=== PATIENT | male | born 1950 | race Caucasian/White ===

== ENCOUNTER 2023-11-05 08:18 | Day surgery (SDC) | payer OTHER ==
[~2023-11-05] VITALS: Ht 167.6 cm; Wt 81.6 kg
[2023-11-05] VITALS (10 sets, daily range): BP systolic 109–151; BP diastolic 55–77; PULSE 72–82; RESP 15–17
[~2023-11-05 08:18] MED LIST: ACET-66 PO; AEC81 PO; ROSU20TA73 PO
[2023-11-05] MEDS: 0.9%NACL 1000ML 1,000 ML IV ONE (09:27)
[2023-11-05] MEDS ORDERED: PROPOFOL 10 MG/ML 20ML VIAL IV ONE (11:16)
== END 2023-11-05 12:35 | disposition home or self-care (01) ==
LOC: DAH 08:18 → ENDO 08:18
PROVIDERS: ATTEND Internal Medicine Gastroenterology
DX: R13.10 Dysphagia, unspecified (principal); K22.2 Esophageal obstruction; K29.50 Unspecified chronic gastritis without bleeding; K31.A0 Gastric intestinal metaplasia, unspecified; K21.9 Gastro-esophageal reflux disease without esophagitis; K31.89 Other diseases of stomach and duodenum; J44.9 Chronic obstructive pulmonary disease, unspecified; I73.9 Peripheral vascular disease, unspecified; M19.90 Unspecified osteoarthritis, unspecified site; F17.210 Nicotine dependence, cigarettes, uncomplicated; Z79.899 Other long term (current) drug therapy; Z86.010 Personal history of colon polyps; Z80.0 Family history of malignant neoplasm of digestive organs; Z98.890 Other specified postprocedural states
CPT/HCPCS: 43239; 43248; J7030 ×2; J2704; A4620; A4215 ×2; A4223; A7002; A4222; A4221; A4663; A4606; J3490

== ENCOUNTER 2024-01-06 05:48 | Day surgery (SDC) | payer OTHER ==
[~2024-01-06] VITALS: Ht 167.6 cm; Wt 81.6 kg
[2024-01-06] VITALS (11 sets, daily range): BP systolic 109–137; BP diastolic 50–64; PULSE 62–72; RESP 14–18
[2024-01-06] MEDS ORDERED: PROPOFOL 10 MG/ML 20ML VIAL IV ONE (07:38)
[2024-01-06] MEDS: 0.9%NACL 1000ML 1,000 ML IV ONE (12:30)
== END 2024-01-06 09:00 | disposition home or self-care (01) ==
LOC: DAH 05:48 → ENDO 05:48
PROVIDERS: ATTEND Internal Medicine Gastroenterology
DX: R13.10 Dysphagia, unspecified (principal); K22.2 Esophageal obstruction; K31.89 Other diseases of stomach and duodenum; K21.9 Gastro-esophageal reflux disease without esophagitis; K29.30 Chronic superficial gastritis without bleeding; K57.30 Diverticulosis of large intestine without perforation or abscess without bleeding; M62.08 Separation of muscle (nontraumatic), other site; M19.90 Unspecified osteoarthritis, unspecified site; J44.9 Chronic obstructive pulmonary disease, unspecified; F17.210 Nicotine dependence, cigarettes, uncomplicated; E66.9 Obesity, unspecified; Z68.30 Body mass index [BMI] 30.0-30.9, adult; Z98.890 Other specified postprocedural states; Z79.899 Other long term (current) drug therapy; Z86.010 Personal history of colon polyps; Z80.0 Family history of malignant neoplasm of digestive organs
CPT/HCPCS: 43248; 43239; J7030 ×2; J2704; A4620; A4215; A4223; A4657; A4222; A4221; A4663; A4606; J3490

== ENCOUNTER 2024-03-29 05:40 | Day surgery (SDC) | payer OTHER ==
[2024-03-26 12:09] LABS: BASOPHILS # (AUTO) 0.04 K/uL (0.00-0.20); BASOPHILS % (AUTO) 0.4 % (0.0-5.0); EOSINOPHILS # (AUTO) 0.37 K/uL (0.00-0.70); EOSINOPHILS % (AUTO) 4.1 % (0.0-8.0); HEMATOCRIT 43.6 % (42-54); IMMATURE GRANULOCYTE ABSOLUTE 0.02 K/uL (0-1); LYMPHOCYTES # (AUTO) 2.2 K/uL (1.0-4.8); LYMPHOCYTES % (AUTO) 24.2 % (21.0-51.0); MEAN CORPUSCULAR HEMOGLOBIN 29.9 pg (27.0-33.0); MEAN CORPUSCULAR HGB CONC 32.6 g/dL (32.0-36.0); MEAN CORPUSCULAR VOLUME 91.8 fL (79-99); MONOCYTES # (AUTO) 0.8 K/uL (0.1-1.0); MONOCYTES % (AUTO) 9.4 % (3.0-13.0); NEUTROPHILS # (AUTO) 5.5 K/uL (1.8-7.7); NEUTROPHILS % (AUTO) 61.7 % (40.0-77.0); PLATELET COUNT (AUTO) 191 K/uL (130-400); RED BLOOD CELL COUNT(AUTO) 4.75 MIL/uL (4.50-6.20); WHITE BLOOD COUNT (AUTO) 8.9 K/uL (4.8-10.8)
[2024-03-26 12:11] LABS: APPEARANCE,URINE CLEAR (CLEAR); BILIRUBIN,URINE NEGATIVE (NEGATIVE); COLOR,URINE LIGHT-YELLOW (YELLOW); GLUCOSE, URINE (UA) NEGATIVE (NEGATIVE); KETONES,URINE NEGATIVE (NEGATIVE); LEUKOCYTE ESTERASE ,URINE NEGATIVE Leu/uL (NEGATIVE); NITRATE,URINE NEGATIVE (NEGATIVE); OCCULT BLOOD,URINE NEGATIVE (NEGATIVE); PH,URINE 5.5 (5.0-8.0); PROTEIN,URINE NEGATIVE (NEGATIVE); UROBILINOGEN,URINE 0.2 mg/dL (0.2-1.0)
[2024-03-26 12:13] VITALS: BP 140/59; PULSE 71; RESP 18
[2024-03-26 12:15] LABS: ADD UA MICROSCOPIC NO
[2024-03-26 12:19] LABS: CREATININE 1.1 mg/dL (0.5-1.3); POTASSIUM 4.5 mmol/L (3.5-5.1)
[2024-03-26 12:20] LABS: INR <= 0.93 (0.85-1.15); PROTHROMBIN TIME 10.3 SEC (9.6-11.6)
[2024-03-26 12:21] LABS: PARTIAL THROMBOPLASTIN TIME 29.9 SEC (26.3-35.5)
[2024-03-26 12:28] LABS: B-TYPE NATRIURETIC PEPTIDE 37 pg/mL (0-100)
[2024-03-29] VITALS (9 sets, daily range): BP systolic 121–145; BP diastolic 52–61; PULSE 63–96; RESP 8–21
[~2024-03-29] VITALS: Ht 165.1 cm; Wt 87.4 kg
[~2024-03-29 05:40] MED LIST changes: -ACET-66 PO; +ALBU18HF7 IH; +ROSU10TA72 PO; -ROSU20TA73 PO
[2024-03-29] MEDS: 0.9%NACL 1000ML 1,000 ML IV ONE (06:42)
[2024-03-29] MEDS ORDERED: PANT20TA18 PO (06:47)
[2024-03-29] MEDS ORDERED: LIDOCAINE HCL 400MG/20ML VIAL ONE (07:30)
[2024-03-29] MEDS ORDERED: SODIUM BICARB 50MEQ 50ML VIAL 50 ML ONE (07:30)
[2024-03-29] MEDS ORDERED: HEPARIN 10,000 UNIT/10ML (1,000 UNIT/ML) VIAL ONE (07:31)
[2024-03-29] MEDS ORDERED: NICARDIPINE 25MG INJ IV ONE (07:31)
[2024-03-29] MEDS ORDERED: MIDAZOLAM HCL 1 MG/ML 2ML VIAL ONE ×2 (07:31→07:52)
[2024-03-29] MEDS ORDERED: IOHEXOL-350 75 ML VIAL IV ONE (07:31)
[2024-03-29] MEDS ORDERED: MEPERIDINE-PF 25 MG/ML SYG ONE ×2 (07:31→07:52)
[2024-03-29] MEDS ORDERED: NITROGLYCERIN 50MG VIAL ONE (07:32)
[2024-03-29] MEDS ORDERED: ASPIRIN 325MG EC TAB PO ONE (08:59)
[2024-03-29] MEDS ORDERED: CLOPIDOGREL 300MG TAB ONE (08:59)
[2024-03-29] MEDS ORDERED: 0.9%NACL 1000ML 1,000 ML IV SCH (09:00)
[2024-03-29] MEDS ORDERED: GLUCAGON 1MG KIT 1 MG ML IM PRN (09:00)
[2024-03-29] MEDS ORDERED: DEXTROSE 50%-WATER 50 ML DISP.SYRIN IV PRN (09:00)
[2024-03-29] MEDS ORDERED: INSULIN HUMULIN R 100 UNIT/ML 3ML SQ SCH (11:30)
== END 2024-03-29 14:25 | disposition home or self-care (01) ==
LOC: DAH 05:40
PROVIDERS: ATTEND Internal Medicine Cardiovascular Disease
DX: I25.119 Atherosclerotic heart disease of native coronary artery with unspecified angina pectoris (principal); I35.1 Nonrheumatic aortic (valve) insufficiency; K21.9 Gastro-esophageal reflux disease without esophagitis; G47.33 Obstructive sleep apnea (adult) (pediatric); J43.9 Emphysema, unspecified; E78.5 Hyperlipidemia, unspecified; I73.9 Peripheral vascular disease, unspecified; F17.200 Nicotine dependence, unspecified, uncomplicated; Z79.01 Long term (current) use of anticoagulants; Z79.899 Other long term (current) drug therapy; Z72.89 Other problems related to lifestyle; Z80.0 Family history of malignant neoplasm of digestive organs; Z82.49 Family history of ischemic heart disease and other diseases of the circulatory system; Z98.890 Other specified postprocedural states
CPT/HCPCS: 80048; 83880; 85025; 85610; 85730; 81003; 36415; 71045; 93005; 92978; 93567; 85347 ×2; 82948 ×2; 93458; C9600 ×2; C1769 ×2; C1887 ×2; C1725 ×2; C1874 ×2; A4649; C1894; C1753; J3490 ×4; J7030; J1644 ×3; J2250 ×2; J2175 ×2; Q9967; A4215; A4222; A6260; A4221; A4663; A4216; A6258; A4606; A4223 ×3; 96360; 96361; 99156; 99157

== ENCOUNTER 2024-06-04 12:00 | Inpatient (IN) | payer OTHER ==
[~2024-06-04] VITALS: Ht 162.6 cm; Wt 86.6 kg
[2024-06-04 10:40] LABS: BASOPHILS # (AUTO) 0.04 K/uL (0.00-0.20); BASOPHILS % (AUTO) 0.5 % (0.0-5.0); EOSINOPHILS # (AUTO) 0.11 K/uL (0.00-0.70); EOSINOPHILS % (AUTO) 1.4 % (0.0-8.0); HEMATOCRIT 39.7 % (42-54); IMMATURE GRANULOCYTE ABSOLUTE 0.02 K/uL (0-1); LYMPHOCYTES # (AUTO) 1.8 K/uL (1.0-4.8); LYMPHOCYTES % (AUTO) 24.1 % (21.0-51.0); MEAN CORPUSCULAR HEMOGLOBIN 30.4 pg (27.0-33.0); MEAN CORPUSCULAR HGB CONC 32.5 g/dL (32.0-36.0); MEAN CORPUSCULAR VOLUME 93.4 fL (79-99); MONOCYTES % (AUTO) 12.7 % (3.0-13.0); NEUTROPHILS # (AUTO) 4.7 K/uL (1.8-7.7); PLATELET COUNT (AUTO) 180 K/uL (130-400); RED BLOOD CELL COUNT(AUTO) 4.25 MIL/uL (4.50-6.20); RED CELL DISTRIBUTION WIDTH 13.7 % (11.0-15.5); WHITE BLOOD COUNT (AUTO) 7.7 K/uL (4.8-10.8)
[2024-06-04 10:45] VITALS: BP 133/67; PULSE 64; RESP 19; TEMP 98.4
[2024-06-04 10:49] LABS: HEMOGLOBIN A1C 6.2 % (4.0-6.0)
[2024-06-04 10:50] LABS: INR 0.96 (0.85-1.15); PROTHROMBIN TIME 10.4 SEC (9.6-11.6)
[2024-06-04 10:51] LABS: PARTIAL THROMBOPLASTIN TIME 29.1 SEC (26.3-35.5)
[2024-06-04 10:55] LABS: ALBUMIN 3.3 g/dL (3.5-5.0); BILIRUBIN,TOTAL 0.4 mg/dL (0.2-1.0); CREATININE 1.1 mg/dL (0.5-1.3); POTASSIUM 4.2 mmol/L (3.5-5.1); TOTAL PROTEIN, SERUM 6.4 g/dL (6.0-8.3)
[2024-06-04 11:19] LABS: ABG BASE EXCESS -0.8 mmol/L (-2.0-3.0); ABG HCO3 23.2 mmol/L (21.0-28.0); ABG OXYGEN SATURATION 95.8 % (94.0-98.0); ABG PCO2 37 mmHg (35-48); ABG PH 7.421 (7.350-7.450); PO2, ARTERIAL BG 77.4 mmHg (83.0-108.0); VENT MODE, BG RA (ROOM AIR)
[~2024-06-04 12:00] MED LIST changes: +CLOP75TA32 PO; +PANT40TA54 PO; -ROSU10TA72 PO; +ROSU20TA73 PO
[2024-06-04 12:15] LABS: B-TYPE NATRIURETIC PEPTIDE 58 pg/mL (0-100)
[2024-06-07] VITALS (57 sets, daily range): BP systolic 99–184; BP diastolic 53–99; PULSE 62–97; RESP 10–36; TEMP 97–98.4; O2SAT 95–100
[2024-06-07] MEDS ORDERED: EPINEPHrine PF 1MG (1:1,000) 10 MG in 0.9% NACL 250ML 240 ML IV PRN ×2 (07:00→13:30)
[2024-06-07] MEDS ORDERED: NOREPINEPHRIN 8MG/250ML NS 250 ML IV PRN ×2 (07:00→14:00)
[2024-06-07] MEDS ORDERED: aminoCAProic ACID 5,000MG VIAL 15,000 MG in 0.9% NACL 500ML IV.SOLN 420 ML IV PRN (07:00)
[2024-06-07] MEDS: ceFAZolin SODIUM 2 GM VIAL ONE (10:09)
[2024-06-07] MEDS: metoPROLOL tartRATE 25 MG TAB ONE (10:10)
[2024-06-07] MEDS: 0.9%NACL 1000ML 1,000 ML IV ONE (10:10)
[2024-06-07] MEDS ORDERED: MIDAZOLAM HCL 1 MG/ML 2ML VIAL ONE ×2 (12:19→12:30)
[2024-06-07] MEDS ORDERED: ketaMINE 50MG/ML SYRINGE 50 MG/ML DISP.SYRIN ONE ×2 (12:26→14:15)
[2024-06-07] MEDS ORDERED: EPINEPHrine PF 1MG (1:1,000) 1 MG/ML AMP ONE (12:29)
[2024-06-07] MEDS ORDERED: FENTanyl CITRate PF 50 MCG/1 ML 20ML VIAL IJ ONE (12:29)
[2024-06-07] MEDS ORDERED: GLYCOPYRROLATE 0.2 MG/ML 5 ML VIAL ONE (12:29)
[2024-06-07] MEDS ORDERED: aminoCAProic ACID 5,000MG VIAL ONE (12:29)
[2024-06-07] MEDS ORDERED: HEParin 10,000 UNIT/10ML (1,000 UNIT/ML) VIAL ONE (12:29)
[2024-06-07] MEDS ORDERED: PROTAMINE SULFATE 10 MG/ML 25ML VIAL IV ONE (12:29)
[2024-06-07] MEDS ORDERED: SODIUM BICARB 50MEQ 50ML VIAL 200 ML ONE (12:29)
[2024-06-07] MEDS ORDERED: proPOFol 10 MG/ML 20ML VIAL IV ONE (12:29)
[2024-06-07] MEDS ORDERED: LIDOCAINE PF 100MG/5ML (2%) SYRINGE 5ML ONE (12:29)
[2024-06-07] MEDS ORDERED: NOREPINEPHRINE BITARTRATE 1 MG/1 ML ML IV ONE (12:29)
[2024-06-07] MEDS ORDERED: rocuRONium bROMide 10MG/1ML 5ML VL ONE (12:30)
[2024-06-07] MEDS ORDERED: ALBUMIN (HUMAN) 25% 50 ML IV ONE (12:44)
[2024-06-07] MEDS: ceFAZolin SODIUM 2 GM VIAL IVPB ONE ×2 (13:00)
[2024-06-07 13:24] LABS: ABG BASE EXCESS -3.6 mmol/L (-2.0-3.0); ABG HCO3 22.4 mmol/L (21.0-28.0); ABG OXYGEN SATURATION 99.4 % (94.0-98.0); ABG PCO2 44 mmHg (35-48); ABG PH 7.323 (7.350-7.450); CARBON MONOXIDE 1.6 % (0.5-1.5); DEVICE COMMENT 1; HHb 0.6; PO2, ARTERIAL BG 281.1 mmHg (83.0-108.0)
[2024-06-07] MEDS ORDERED: aminoCAProic ACID 5,000MG VIAL 15,000 MG in 0.9% NACL 250ML 250 ML IV SCH (13:30)
[2024-06-07] MEDS ORDERED: NOREPINEPHRINE BITARTRATE 8 MG in DEXTROSE 5%-WATER 250 ML IV PRN (13:30)
[2024-06-07] MEDS ORDERED: NITROGLYCERIN 50MG/D5W 250ML 250 BOT IV SCH (13:30)
[2024-06-07] MEDS ORDERED: POTASSIUM PHOS 15 mMOL+NS250ML 250 ML IV PRN (13:30)
[2024-06-07] MEDS ORDERED: acetaMINOPHEN 325 MG TAB PO PRN ×2 (13:30)
[2024-06-07] MEDS ORDERED: LACTULOSE 20 GM/30 ML UDCUP PO PRN (13:30)
[2024-06-07] MEDS ORDERED: 0.9% NACL 500ML IV.SOLN 500 ML IV SCH (13:30)
[2024-06-07] MEDS ORDERED: 0.9%NACL 10ML VIAL IVP PRN (13:30)
[2024-06-07] MEDS ORDERED: ALBUMIN (HUMAN) 5% 250 ML IV PRN (13:30)
[2024-06-07] MEDS ORDERED: morPHINE 2 MG SYG IV PRN (13:30)
[2024-06-07] MEDS ORDERED: acetaMINOPHEN 650 MG SUPPOSITORY RC PRN (13:30)
[2024-06-07] MEDS ORDERED: dexmedeTOMIDine 400MCG/NS100ML IV SCH (13:30)
[2024-06-07] MEDS ORDERED: MAGNESIUM HYDROXIDE 30 ML/UDCUP PO PRN (13:30)
[2024-06-07] MEDS ORDERED: proPOFol 1000 MG/100 ML 100 ML IV PRN (13:30)
[2024-06-07] MEDS ORDERED: GLUCAGON 1MG KIT 1 MG ML IM PRN (13:30)
[2024-06-07] MEDS ORDERED: DEXTROSE 50%-WATER 50 ML DISP.SYRIN IV PRN (13:30)
[2024-06-07] MEDS ORDERED: traMADol HCL 50 MG TABLET PO PRN (13:30)
[2024-06-07 13:51] LABS: ABG BASE EXCESS -3.6 mmol/L (-2.0-3.0); ABG HCO3 20.4 mmol/L (21.0-28.0); ABG PCO2 33 mmHg (35-48); ABG PH 7.412 (7.350-7.450); CARBON MONOXIDE 0.8 % (0.5-1.5); DEVICE COMMENT 2
[2024-06-07] MEDS ORDERED: ROPivacaine 0.5% 5MG/ML 30ML ONE (13:59)
[2024-06-07 14:48] LABS: ABG BASE EXCESS 1.6 mmol/L (-2.0-3.0); ABG HCO3 26.5 mmol/L (21.0-28.0); ABG OXYGEN SATURATION 98.6 % (94.0-98.0); ABG PCO2 43 mmHg (35-48); ABG PH 7.406 (7.350-7.450); CARBON MONOXIDE 0.2 % (0.5-1.5); DEVICE COMMENT 3; HHb 1.4; PO2, ARTERIAL BG 191.6 mmHg (83.0-108.0)
[2024-06-07 15:23] LABS: ABG BASE EXCESS -0.3 mmol/L (-2.0-3.0); ABG HCO3 25.5 mmol/L (21.0-28.0); ABG OXYGEN SATURATION 98.8 % (94.0-98.0); ABG PCO2 47 mmHg (35-48); ABG PH 7.354 (7.350-7.450); CARBON MONOXIDE 1.2 % (0.5-1.5); HHb 1.2; PO2, ARTERIAL BG 243.5 mmHg (83.0-108.0); VENT MODE, BG SIMV (ROOM AIR)
[2024-06-07 15:29] LABS: HEMATOCRIT 30.8 % (42-54); MEAN CORPUSCULAR HEMOGLOBIN 30.4 pg (27.0-33.0); MEAN CORPUSCULAR HGB CONC 33.1 g/dL (32.0-36.0); MEAN CORPUSCULAR VOLUME 91.9 fL (79-99); RED BLOOD CELL COUNT(AUTO) 3.35 MIL/uL (4.50-6.20); RED CELL DISTRIBUTION WIDTH 13.6 % (11.0-15.5); WHITE BLOOD COUNT (AUTO) 11.3 K/uL (4.8-10.8)
[2024-06-07 15:39] LABS: CREATININE 0.8 mg/dL (0.5-1.3); MAGNESIUM 3.3 mg/dL (1.80-2.40); PHOSPHORUS 3.7 mg/dL (2.5-4.9); POTASSIUM 4.3 mmol/L (3.5-5.1)
[2024-06-07] MEDS: 0.9%NACL 1000ML 1,000 ML IV SCH (15:50)
[2024-06-07] MEDS: 0.2% ROPIVACAINE 600ML Q-PUMP IRRIG SCH (15:51)
[2024-06-07] MEDS: INSULIN REGULAR, HUMAN 3ML 100 UNIT in 0.9%NACL 100ML 99 ML IV SCH (15:52)
[2024-06-07 15:56] LABS: INR 1.11 (0.85-1.15); PROTHROMBIN TIME 11.9 SEC (9.6-11.6)
[2024-06-07 15:57] LABS: PARTIAL THROMBOPLASTIN TIME 28.9 SEC (26.3-35.5)
[2024-06-07] MEDS: ASPIRIN 81MG CHEW TAB PO ONE (16:25)
[2024-06-07 16:30] LABS: ABG BASE EXCESS 0.2 mmol/L (-2.0-3.0); ABG HCO3 26.2 mmol/L (21.0-28.0); ABG OXYGEN SATURATION 98.6 % (94.0-98.0); ABG PCO2 48 mmHg (35-48); ABG PH 7.354 (7.350-7.450); CARBON MONOXIDE 0.8 % (0.5-1.5); HHb 1.4; PO2, ARTERIAL BG 188.9 mmHg (83.0-108.0); VENT MODE, BG SIMV (ROOM AIR)
[2024-06-07] MEDS: morPHINE 2 MG SYG IV PRN (16:50)
[2024-06-07] MEDS ORDERED: ALBUTEROL SULFATE IH SCH (17:00)
[2024-06-07] MEDS: ALBUTEROL 0.083% 2.5 MG/3 ML INH IH SCH (17:00)
[2024-06-07] MEDS: acetaMINOPHEN 1,000 MG/100 ML VIAL IV SCH (17:15)
[2024-06-07 17:35] LABS: ABG BASE EXCESS -0.7 mmol/L (-2.0-3.0); ABG OXYGEN SATURATION 96.9 % (94.0-98.0); ABG PCO2 46 mmHg (35-48); ABG PH 7.358 (7.350-7.450); CARBON MONOXIDE 0.8 % (0.5-1.5); HHb 3.1; PO2, ARTERIAL BG 99.3 mmHg (83.0-108.0); VENT MODE, BG SIMV (ROOM AIR)
[2024-06-07] MEDS: POTASSIUM CHLORIDE 20MEQ/100ML 100 ML IV PRN (17:39)
[2024-06-07] MEDS: ceFAZolin SODIUM 2 GM VIAL IVPB SCH (18:05)
[2024-06-07 18:30] LABS: ABG BASE EXCESS 0.8 mmol/L (-2.0-3.0); ABG HCO3 26.4 mmol/L (21.0-28.0); ABG OXYGEN SATURATION 95.9 % (94.0-98.0); ABG PCO2 46 mmHg (35-48); ABG PH 7.373 (7.350-7.450); CARBON MONOXIDE 0.8 % (0.5-1.5); PO2, ARTERIAL BG 87.1 mmHg (83.0-108.0); VENT MODE, BG SIMV,PS10 (ROOM AIR)
[2024-06-07 19:58] LABS: CREATININE 1.3 mg/dL (0.5-1.3); POTASSIUM 3.4 mmol/L (3.5-5.1)
[2024-06-07 20:03] LABS: ALBUMIN 3.2 g/dL (3.5-5.0); BILIRUBIN,TOTAL 0.3 mg/dL (0.2-1.0); MAGNESIUM 2.5 mg/dL (1.80-2.40); TOTAL PROTEIN, SERUM 5.8 g/dL (6.0-8.3)
[2024-06-07 20:06] LABS: ABG BASE EXCESS -0.7 mmol/L (-2.0-3.0); ABG HCO3 24.9 mmol/L (21.0-28.0); ABG PCO2 45 mmHg (35-48); ABG PH 7.361 (7.350-7.450); CARBON MONOXIDE 0.3 % (0.5-1.5); PO2, ARTERIAL BG 89.7 mmHg (83.0-108.0); VENT MODE, BG SIMV,PS10 (ROOM AIR)
[2024-06-07] MEDS: CALCIUM GLUC 1GM 1 GM in 0.9%NACL 50ML 50 ML IV PRN (20:16)
[2024-06-07] MEDS ORDERED: COMPOUND IV MISC 1 EACH IVSOLN MISC PRN (20:30)
[2024-06-07 20:57] LABS: ABG HCO3 26.6 mmol/L (21.0-28.0); ABG OXYGEN SATURATION 96.8 % (94.0-98.0); ABG PCO2 47 mmHg (35-48); ABG PH 7.373 (7.350-7.450); CARBON MONOXIDE 0.3 % (0.5-1.5); HHb 3.2; PO2, ARTERIAL BG 98.4 mmHg (83.0-108.0); VENT MODE, BG SIMV,PS10 (ROOM AIR)
[2024-06-07] MEDS ORDERED: NON-FORMULARY MEDICATION 1 EACH (Rosuvastatin Calcium 20 MG) PO SCH (21:00)
[2024-06-07] MEDS: atorVAStatin 40 MG TABLET PO SCH (21:36)
[2024-06-07] MEDS: FAMOTIDINE 20MG VIAL IV SCH (21:36)
[2024-06-07] MEDS: doCUSate SODIUM 100 MG CAP PO ONE (21:36)
[2024-06-07 22:21] LABS: ABG BASE EXCESS 0.2 mmol/L (-2.0-3.0); ABG HCO3 25.6 mmol/L (21.0-28.0); ABG OXYGEN SATURATION 96.8 % (94.0-98.0); ABG PCO2 44 mmHg (35-48); CARBON MONOXIDE 0.3 % (0.5-1.5); HHb 3.2; PO2, ARTERIAL BG 98.6 mmHg (83.0-108.0); VENT MODE, BG AM,40 (ROOM AIR)
[2024-06-08] VITALS (93 sets, daily range): BP systolic 84–130; BP diastolic 38–75; PULSE 60–116; RESP 5–23; TEMP 98.4–99.1; O2SAT 92–95
[2024-06-08] MEDS: ONDANSETRON 4MG INJ IV PRN (01:07)
[2024-06-08] MEDS: traMADol HCL 50 MG TABLET PO PRN (01:11)
[2024-06-08] MEDS: AMIOdarone 900MG VIAL 540 MG in DEXTROSE 5%-WATER 300 ML IV STA (02:00)
[2024-06-08] MEDS: ketOROlac 30MG VIAL (30MG/ML) IM ONE (02:20)
[2024-06-08 02:21] LABS: ABG BASE EXCESS -2.7 mmol/L (-2.0-3.0); ABG HCO3 23.1 mmol/L (21.0-28.0); ABG OXYGEN SATURATION 95.5 % (94.0-98.0); ABG PCO2 44 mmHg (35-48); ABG PH 7.337 (7.350-7.450); CARBON MONOXIDE 0.3 % (0.5-1.5); HHb 4.5; PO2, ARTERIAL BG 83.5 mmHg (83.0-108.0); VENT MODE, BG AM,40 (ROOM AIR)
[2024-06-08] MEDS: SODIUM BICARB 50MEQ 50ML VIAL IV PRN (02:25)
[2024-06-08] MEDS: ketOROlac 30MG VIAL (30MG/ML) ONE (03:36)
[2024-06-08 03:46] LABS: HEMATOCRIT 33.6 % (42-54); MEAN CORPUSCULAR HEMOGLOBIN 30.5 pg (27.0-33.0); MEAN CORPUSCULAR HGB CONC 32.7 g/dL (32.0-36.0); MEAN CORPUSCULAR VOLUME 93.1 fL (79-99); RED BLOOD CELL COUNT(AUTO) 3.61 MIL/uL (4.50-6.20); WHITE BLOOD COUNT (AUTO) 9.9 K/uL (4.8-10.8)
[2024-06-08 04:13] LABS: MAGNESIUM 1.9 mg/dL (1.80-2.40); PHOSPHORUS 4.9 mg/dL (2.5-4.9); POTASSIUM 4.1 mmol/L (3.5-5.1)
[2024-06-08 04:39] LABS: INR 1.01 (0.85-1.15); PROTHROMBIN TIME 10.9 SEC (9.6-11.6)
[2024-06-08 04:40] LABS: PARTIAL THROMBOPLASTIN TIME 26.8 SEC (26.3-35.5)
[2024-06-08] MEDS: MAGNESIUM 2GM PREMIX 50ML 50 ML IV PRN (05:08)
[2024-06-08] MEDS: ASPIRIN 81 MG EC TAB PO SCH (09:41)
[2024-06-08] MEDS: FAMOTIDINE 20MG TAB ONE (11:31)
[2024-06-08] MEDS: furoSEMIDE 20MG VIAL IV SCH (11:41)
[2024-06-08] MEDS ORDERED: DELNIDO FORMULA 2 BAG IV ONE (13:02)
[2024-06-08] MEDS: AMIOdarone 900MG VIAL 150 MG in DEXTROSE 5%-WATER 100 ML IV SCH (19:37)
[2024-06-08] MEDS: AMIOdarone 900MG VIAL 360 MG in DEXTROSE 5%-WATER 200 ML IV SCH (19:49)
[2024-06-08] MEDS: FAMOTIDINE 20MG TAB PO SCH (21:56)
[2024-06-09] VITALS (101 sets, daily range): BP systolic 80–142; BP diastolic 37–85; PULSE 56–96; RESP 15–35; TEMP 98.4–99.1; O2SAT 93–97
[2024-06-09 04:38] LABS: MEAN CORPUSCULAR HEMOGLOBIN 29.7 pg (27.0-33.0); MEAN CORPUSCULAR HGB CONC 32.4 g/dL (32.0-36.0); MEAN CORPUSCULAR VOLUME 91.7 fL (79-99); RED BLOOD CELL COUNT(AUTO) 3.6 MIL/uL (4.50-6.20); RED CELL DISTRIBUTION WIDTH 14.1 % (11.0-15.5); WHITE BLOOD COUNT (AUTO) 9.8 K/uL (4.8-10.8)
[2024-06-09 04:50] LABS: CREATININE 1.1 mg/dL (0.5-1.3); POTASSIUM 4.2 mmol/L (3.5-5.1)
[2024-06-09] MEDS: INSULIN humuLIN R 100 UNIT/ML 3ML SQ SCH (07:30)
[2024-06-09] MEDS: CLOPIDOGREL 75MG TAB PO SCH (09:05)
[2024-06-09] MEDS: metoPROLOL tartRATE 25 MG TAB PO SCH (09:05)
[2024-06-09] MEDS: furoSEMIDE 20 MG TABLET PO SCH (09:05)
[2024-06-09] MEDS: IpraTROPium 0.5 MG/2.5 ML INH IH SCH (14:18)
[2024-06-09] MEDS: IpraTROPium 0.5 MG/2.5 ML INH IH ONE (14:21)
[2024-06-09] MEDS: doCUSate SODIUM 100 MG CAP PO SCH (17:06)
[2024-06-09] MEDS: AMIOdarone 200 MG TABLET PO SCH (19:18)
[2024-06-10] VITALS (47 sets, daily range): BP systolic 99–137; BP diastolic 54–76; PULSE 65–82; RESP 16–31; TEMP 98.3–98.9; O2SAT 92–97
[2024-06-10 05:13] LABS: MEAN CORPUSCULAR HEMOGLOBIN 30.1 pg (27.0-33.0); MEAN CORPUSCULAR HGB CONC 32.7 g/dL (32.0-36.0); MEAN CORPUSCULAR VOLUME 91.9 fL (79-99); RED BLOOD CELL COUNT(AUTO) 3.59 MIL/uL (4.50-6.20); RED CELL DISTRIBUTION WIDTH 13.7 % (11.0-15.5); WHITE BLOOD COUNT (AUTO) 9.6 K/uL (4.8-10.8)
[2024-06-10 05:28] LABS: CREATININE 1.1 mg/dL (0.5-1.3); POTASSIUM 4.5 mmol/L (3.5-5.1)
[2024-06-10] MEDS: ENOXAPARIN SODIUM 30 MG/0.3 ML SQ SCH (09:03)
[2024-06-10] MEDS: polyETHYLene GLYCol 3350 17 GM POWD.PACK PO SCH (09:03)
[2024-06-10] MEDS ORDERED: ALBUTEROL 0.083% 2.5 MG/3 ML INH IH SCH (14:00)
[2024-06-10] MEDS: Solu-medROL 40MG VIAL IVP SCH (14:00)
[2024-06-11] VITALS (9 sets, daily range): BP systolic 120–122; BP diastolic 74–84; PULSE 69–90; RESP 16–20; TEMP 98.2–98.5; O2SAT 92–94
[2024-06-11 03:52] LABS: HEMATOCRIT 34.7 % (42-54); MEAN CORPUSCULAR HEMOGLOBIN 30.4 pg (27.0-33.0); MEAN CORPUSCULAR HGB CONC 33.7 g/dL (32.0-36.0); MEAN CORPUSCULAR VOLUME 90.1 fL (79-99); RED BLOOD CELL COUNT(AUTO) 3.85 MIL/uL (4.50-6.20); RED CELL DISTRIBUTION WIDTH 13.7 % (11.0-15.5); WHITE BLOOD COUNT (AUTO) 7.2 K/uL (4.8-10.8)
[2024-06-11 04:02] LABS: CREATININE 1.3 mg/dL (0.5-1.3); POTASSIUM 3.9 mmol/L (3.5-5.1)
[2024-06-11] MEDS: BisaCODYL 10 MG SUPP.RECT RC ONE (06:40)
[2024-06-11] MEDS ORDERED: AMIO200T44 PO (16:30)
[2024-06-11] MEDS ORDERED: CLOP-31 PO (16:30)
[2024-06-11] MEDS ORDERED: FURO20TA6 PO (16:30)
[2024-06-11] MEDS ORDERED: METO25 PO (16:30)
[2024-06-11] MEDS ORDERED: POTA-200 PO (16:30)
[2024-06-11] MEDS ORDERED: ATOR40TA69 PO (16:30)
[2024-06-11] MEDS ORDERED: PRED20TA3 PO (16:30)
== END 2024-06-11 18:17 | disposition home or self-care (01) | DRG 221 ==
LOC: DAHIP 06-07 08:54 → 2CV 06-07 12:36 → 2CH 06-08 19:20 → 2AH 06-10 10:46
PROVIDERS: ADMIT Thoracic Surgery (Cardiothoracic Vascular Surgery); ATTEND Thoracic Surgery (Cardiothoracic Vascular Surgery)
PROC: B24BZZ4 Ultrasonography of Heart with Aorta, Transesophageal (ICD-10-PCS; 2024-06-07)
PROC: 02RF08Z Replacement of Aortic Valve with Zooplastic Tissue, Open Approach (ICD-10-PCS; principal; 2024-06-07 12:23)
PROC: 5A1221Z Performance of Cardiac Output, Continuous (ICD-10-PCS; 2024-06-07 12:23)
DX: I35.2 Nonrheumatic aortic (valve) stenosis with insufficiency (principal); Z68.32 Body mass index [BMI] 32.0-32.9, adult; E78.5 Hyperlipidemia, unspecified; J43.9 Emphysema, unspecified; G47.33 Obstructive sleep apnea (adult) (pediatric); E66.9 Obesity, unspecified; M65.4 Radial styloid tenosynovitis [de Quervain]; K21.9 Gastro-esophageal reflux disease without esophagitis; R03.0 Elevated blood-pressure reading, without diagnosis of hypertension; I25.10 Atherosclerotic heart disease of native coronary artery without angina pectoris; I73.9 Peripheral vascular disease, unspecified; G47.30 Sleep apnea, unspecified; E87.70 Fluid overload, unspecified; F17.210 Nicotine dependence, cigarettes, uncomplicated; I48.91 Unspecified atrial fibrillation; Z80.0 Family history of malignant neoplasm of digestive organs; Z95.5 Presence of coronary angioplasty implant and graft; Z83.3 Family history of diabetes mellitus; Z79.02 Long term (current) use of antithrombotics/antiplatelets; Z79.899 Other long term (current) drug therapy
CPT/HCPCS: 36415; 36600; 71045; 80048; 80053; 80061; 82330; 82435; 82803; 82947; 82948; 83036; 83605; 83735; 83880; 84100; 84132; 84295; 85018; 85025; 85027; 85347; 85384; 85610; 85730; 86850; 86900; 86901; 86923; 87641; 88305; 93005; 93312; 93318; 93325; 93880; 94002; 94010; 94150; 94640; A4357; A7048; G0378; J0171; J0282; J0690; J1644; J1650; J1815; J1885; J1940; J2001; J2250; J2270; J2371; J2405; J2704; J2720; J2795; J2919; J3010; J3475; J3480; J3490; J7030; J7040; J7060; P9047; A4215; A4216; A4221; A4222; A4223; A4305; A4315; A4452; A4510; A4600; A4649; A4663; A4930; A5120; A6204; A6206; A6219; C1713; C1755; C1760; C1776; C1887; G0168

== ENCOUNTER 2024-10-04 16:17 | Emergency (ER) | payer OTHER ==
[~2024-10-04] VITALS: Ht 167.6 cm; Wt 83.9 kg
[~2024-10-04 16:17] MED LIST changes: +AMIO200T44 PO; +ATOR40TA69 PO; +CLOP-31 PO; -CLOP75TA32 PO; +FURO20TA6 PO; +METO25 PO; +POTA-200 PO; +PRED20TA3 PO; -ROSU20TA73 PO
[2024-10-04 16:43] LABS: BASOPHILS # (AUTO) 0.04 K/uL (0.00-0.20); BASOPHILS % (AUTO) 0.6 % (0.0-5.0); EOSINOPHILS # (AUTO) 0.29 K/uL (0.00-0.70); EOSINOPHILS % (AUTO) 4.1 % (0.0-8.0); HEMATOCRIT 41.4 % (42-54); IMMATURE GRANULOCYTE ABSOLUTE 0.02 K/uL (0-1); LYMPHOCYTES # (AUTO) 1.4 K/uL (1.0-4.8); LYMPHOCYTES % (AUTO) 19.9 % (21.0-51.0); MEAN CORPUSCULAR HEMOGLOBIN 29.5 pg (27.0-33.0); MEAN CORPUSCULAR HGB CONC 33.8 g/dL (32.0-36.0); MEAN CORPUSCULAR VOLUME 87.3 fL (79-99); MONOCYTES # (AUTO) 0.5 K/uL (0.1-1.0); MONOCYTES % (AUTO) 7.5 % (3.0-13.0); NEUTROPHILS # (AUTO) 4.7 K/uL (1.8-7.7); NEUTROPHILS % (AUTO) 67.6 % (40.0-77.0); PLATELET COUNT (AUTO) 199 K/uL (130-400); RED BLOOD CELL COUNT(AUTO) 4.74 MIL/uL (4.50-6.20); RED CELL DISTRIBUTION WIDTH 14.8 % (11.0-15.5)
--- NOTE | 2024-10-04 16:48 | ERN ---
ED Note History of Present Illness Stated Complaint: SOB X 1 MONTH Chief Complaint: Chest Pain Time Seen by MD: 16:41 Dictation: Patient is a 74-year-old male with a past medical history of diabetes, hypercholesterolemia, aortic valve replacement on June 07, 2024 presents to the ED for chest pain that has been ongoing for the past few months since his surgery. Patient states he also has shortness of breath, fatigue, decreased appetite, and upper abdominal pain due to a hernia. Patient denies any retrosternal chest pain describes the pain as a burning sensation closer to where surgery incisions were made. Patient denies fever, chills, cough, or muscle weakness Allergies: Coded Allergies: No Known Drug Allergies (Unverified Allergy, Unknown, 03/26/24) Home Meds Active Scripts Potassium Chloride (Potassium Chloride) 10 Meq Tab.er.prt, 10 MEQ PO DAILY, #30 TAB 0 Refills Prov:LOLITA BOJORQUEZ 06/11/24 Metoprolol Tartrate (Lopressor) 25 Mg Tab, 12.5 MG PO BID, #60 TAB 1 Refill Prov:LOLITA BOJORQUEZ 06/11/24 Prednisone (Prednisone) 20 Mg Tablet, 20 MG PO BID for 5 Days, #10 TAB Prov:LOLITA BOJORQUEZ 24 Furosemide (Lasix 20Mg Tab) 20 Mg Tablet, 20 MG PO Q12H, #60 TAB 0 Refills Prov:LOLITA BOJORQUEZ 06/11/24 Clopidogrel Bisulfate (Plavix) 75 Mg Tablet, 75 MG PO DAILY, #30 TAB 1 Refill Prov:LOLITA BOJORQUEZ 06/11/24 Atorvastatin Calcium (LIPITOR) 40 Mg Tablet, 80 MG PO HS, #60 TAB 0 Refills Prov:LOLITA BOJORQUEZ 06/11/24 Amiodarone HCl (Pacerone) 200 Mg Tablet, 200 MG PO DAILY, #30 TAB 1 Refill Prov:LOLITA BOJORQUEZ 06/11/24 Reported Medications Pantoprazole Sodium (Pantoprazole Sodium) 40 Mg Tablet.dr, 40 MG PO DAILY, TAB 06/04/24 Aspirin (ASPIRIN 81 MG ECTAB) 81 Mg Ectab, 81 MG PO DAILY, TAB.EC 06/04/24 Albuterol Sulfate (Ventolin Hfa) 90 Mcg Hfa.aer.ad, 1 PUFF IH QID, INHALER 03/26/24 Past Medical History Past Medical History: Diabetes-Type II Surgical History: CABG, Other Surgical History Other: STENTS, VALVE REPLACEMENT Review of System Dictation Constitutional-no chills, weight loss/gain, fever Eyes-no injury, pain, redness and discharge ENT-no injury, pain, swelling Cardiovascular no chest pain, palpitations, edema Respiratory no shortness of breath, cough, wheezing Abdomen/GI-no abdominal pain, diarrhea, constipation, vomiting, nausea Back no injury and pain Genitourinary no injury, bleeding and discharge Musculoskeletal/extremities no injury, deformity Skin no rash, discoloration Neuro-no headache, weakness, numbness, tingling, seizures, tremors Psych-no suicidal ideation, homicidal ideation, hallucinations, depression, anxiety, memory loss Initial Vital Sign VS Vital Signs Date Time Temp Pulse Resp B/P (MAP) Pulse Ox O2 Delivery O2 Flow Rate FiO2 10/04/24 16:18 98.2 71 20 147/84 99 Room Air 0 10/04/24 21:05 21 Physical Exam Dictation VITAL SIGNS: Reviewed. GENERAL APPEARANCE: Alert, oriented x3, no acute distress, obese. HEAD AND FACE: Non-traumatic. EYES: PERRL, pink conjunctivas, eyelid no trauma, anterior chamber clear. EARS: Pinnas intact and no signs of trauma or erythema. Ear canals clear and no discharge. TMs no erythema. NOSE: No discharge, no bleeding. OROPHARYNX: Mouth normal, teeth no caries, tongue pink. Pharynx clear, no erythema. Tonsils no exudates, no abscesses noted. Mucous membrane moist. NECK: Supple, non-tender, no thyromegaly, no masses, no JVD, no bruits. BREAST: Deferred. CHEST: No tenderness, no crepitus, no paradoxical movement, no retractions. LUNGS: Clear, well-ventilated, symmetric, no rales, no wheezing, no rhonchi, no stridor, good breath sounds bilaterally. HEART: Regular rate, regular rhythm, no murmur, no gallops. VASCULAR: No peripheral edema. ABDOMEN: Soft, positive bowel sounds, nondistended, no guarding, nontender, no rebound, no masses no hepatomegaly, no splenomegaly, no Sanchez's sign. Possible epigastric hernia GENITAL: Deferred. NEUROLOGICAL: Normal speech, gross motor function intact, gross sensory function intact. MUSCULOSKELETAL: Neck nontender, full range of motion, back nontender, full range of motion. EXTREMITIES: Nontender, full range of motion. SKIN: Color pink, dry, no turgor, no rash, no lacerations, no abrasions, no contusions. LYMPHATICS: Deferred. Results (Laboratory/Radiology) Laboratory/Radiology Laboratory Tests Test 10/04/24 16:36 10/04/24 17:00 White Blood Count 7.0 K/uL (4.8-10.8) Red Blood Count 4.74 MIL/uL (4.50-6.20) Hemoglobin 14.0 g/dL (14.0-18.0) Hematocrit 41.4 % (42-54) L Mean Corpuscular Volume 87.3 fL (79-99) Mean Corpuscular Hemoglobin 29.5 pg (27.0-33.0) Mean Corpuscular Hemoglobin Concent 33.8 g/dL (32.0-36.0) Red Cell Distribution Width 14.8 % (11.0-15.5) Platelet Count 199 K/uL (130-400) Mean Platelet Volume 9.7 fL (7.5-10.5) Immature Granulocyte % (Auto) 0.3 % (0-1) Neutrophils (%) (Auto) 67.6 % (40.0-77.0) Lymphocytes (%) (Auto) 19.9 % (21.0-51.0) L Monocytes (%) (Auto) 7.5 % (3.0-13.0) Eosinophils (%) (Auto) 4.1 % (0.0-8.0) Basophils (%) (Auto) 0.6 % (0.0-5.0) Neutrophils # (Auto) 4.7 K/uL (1.8-7.7) Lymphocytes # (Auto) 1.4 K/uL (1.0-4.8) Monocytes # (Auto) 0.5 K/uL (0.1-1.0) Eosinophils # (Auto) 0.29 K/uL (0.00-0.70) Basophils # (Auto) 0.04 K/uL (0.00-0.20) Absolute Immature Granulocyte (auto 0.02 K/uL (0-1) Nucleated Red Blood Cells 0.0 % (0.0-0.19) Sodium Level 141 mmol/L (136-145) Potassium Level 3.2 mmol/L (3.5-5.1) L Chloride Level 102 mmol/L (101-111) Carbon Dioxide Level 32 mmol/L (21-32) Blood Urea Nitrogen 15 mg/dL (7-18) Creatinine 1.3 mg/dL (0.5-1.3) Glomerular Filtration Rate Calc 58 mL/min (>90) Random Glucose 142 mg/dL (70-105) H Total Calcium 8.5 mg/dL (8.5-10.1) Magnesium Level 1.60 mg/dL (1.80-2.40) L Total Creatine Kinase 140 U/L (21-232) B-Type Natriuretic Peptide 19 pg/mL (0-100) Troponin I < 0.05 ng/mL (0.00-0.05) EKG Comment: EKG obtained 10/04/2024 at 16:21:34 Sinus rhythm HR [address] elevations/depressions ED Course ED Course Orders Procedure Category Date Status Time Vital Signs Per CPOE 10/04/24 Transmitted Routine 16:21 B-Type Natriuretic LAB 10/04/24 Complete Peptide 16:21 Chest 1vw RAD 10/04/24 Resulted 16:21 12 Lead Ekg Tracing- EKG 10/04/24 Logged Technical 16:21 Oxygen By Nc/Pulse Ox CPOE 10/04/24 Transmitted 16:21 Maintain Iv CPOE 10/04/24 Transmitted 16:21 Iv Insertion CPOE 10/04/24 Transmitted 16:21 Cardiac Monitoring CPOE 10/04/24 Transmitted 16:21 Pulse Oximetry With CPOE 10/04/24 Transmitted Vs And Prn 16:21 Cbc With Differential LAB 10/04/24 Complete 16:21 Activity: Br W/Brp CPOE 10/04/24 Transmitted With Assist 16:21 Creatine Kinase, Total LAB 10/04/24 Complete 16:21 Troponin Poc Order LAB 10/04/24 Complete Only 16:21 Bedside Troponin-I LAB.ER 10/04/24 Complete (Poc) 16:21 Basic Metabolic Panel LAB 10/04/24 Complete 16:21 Magnesium LAB 10/04/24 Complete 17:44 Ct Chest W/Contrast CT 10/04/24 Resulted 18:05 Iohexol (Omnipaque) PHA 10/04/24 Complete 21:25 Current Medications Medications (Trade) Dose Ordered Sig/Ruddy Route PRN Reason Start Time Stop Time Status Last Admin Dose Admin Iohexol (Omnipaque) 75 ml STK-MED ONCE IV 10/04/24 21:25 10/04/24 21:26 DC Vital Signs Date Time Temp Pulse Resp B/P (MAP) Pulse Ox O2 Delivery O2 Flow Rate FiO2 10/05/24 00:05 98.1 76 20 139/82 97 Room Air* 0 21 10/04/24 21:05 98.2 80 27 169/98 96 Room Air* 0 21 10/04/24 16:18 98.2 71 20 147/84 99 Room Air 0 Medical Decision Making [facility] MDM INITIAL IMPRESSION Initial history and physical concerning for pain from chest incisions Contributing medical problems: Recent aortic valve replacement I have reviewed the triage nursing notes and vital signs. Initial plan: Laboratory evaluation, CXR, EKG DATA REVIEW I have reviewed additional NN, repeat VS, and monitoring where indicated. Heart rate, blood pressure, and O2 saturation are acceptable. Joe diagnostic results: Troponin <0.05, BNP 19 Other independent historian: Review of external data: ED COURSE Interventions: Reassessment: DISPOSITION Final diagnostic impression: I discussed my findings, clinical impression and treatment recommendations with the patient. My final plan for disposition was made based upon -mild risk of complications and potential morbidity of the patient's condition. -Discussion with the patient regarding management options. [diposition] CC: chest pains, dyspnea, fatigue s/p aortic valve replacement Historian: Patient Comorbidities: DM, DLD, aortic valve replacement Limitations by social determinants of health: None vitals: Mild hypertension otherwise stable. Labs: No leukocytosis no anemia. Chemistry shows mildly low potassium 3.2, mildly low magnesium 1.6. Troponin stable. BNP stable. CXR ( per my independent interpretation): No cardiomegaly or pleural effusions or focal infiltrates. CTA shows no signs of PE. Patient's heart score for based on age and risk factors I discussed admission with the patient but does not want to be admitted this time. He reports that he thinks his symptoms are more due to abdominal hernia that he has. He says that he recently in his heart psych down he can follow up as an outpatient with Dr. Solares. Again reiterated the risks and benefits of staying former since discharge and he prefers to go home for the holidays. Please note there was a delay in care due to shift change, extensive ER voiding, and prolonged wait time for CT scan read. REASON: CHEST PAIN ORDERING PHYSICIAN: DEMIAN GONSALVES MD PROCEDURE: CXR1VW - CHEST 1VW Exam Type: CHEST 1VW Clinical Information: CHEST PAIN Comparison: None Findings: The lungs are clear of infiltrates. The heart is normal in size. The bony and soft tissue structures of the chest are unremarkable. Impression: Clear lungs. REASON: SOB ORDERING PHYSICIAN: SERGIO HANSEN MD PROCEDURE: CHEST W - CT CHEST W/CONTRAST CT angiogram chest CLINICAL INDICATION: SOB COMPARISON: None. CT Dose Index (CTDI): 113.50 mGy Dose Length Product (DLP): 1408.10 total mGy PROTOCOL: Contrast: 100 cc of Isovue-370, injected IV, no complications Examination is done at 2.5 millimeter volumetric acquisition after contrast administration. Photography is done at 5 millimeter thick intervals for the thorax. FINDINGS: There is no evidence of pulmonary embolism. The airway is intact. The trachea and major bronchi are unremarkable. No pulmonary infiltrates or mass lesions are seen. No pleural effusions are identified. The exam of the melody and mediastinum is unremarkable. No evidence of hilar enlargement is seen. The aorta shows no aneurysmal dilatation or significant atheromatous calcification. There is no thoracic aortic dissection. No significant brachiocephalic vascular abnormalities are seen. Status post median sternotomy with aortic valvular replacement. There is no pericardial effusion. The rib cage appears unremarkable. The soft tissues of the chest wall are unremarkable. The dorsal spine shows no significant abnormalities. Limited evaluation of the upper abdomen demonstrates no gross abnormalities. IMPRESSION: No evidence of pulmonary embolism. DX & DISP Disposition: Discharge Departure Impression: Primary Impression: Abdominal hernia Additional Impressions: Chest pain, non-cardiac, Dyspnea Condition: Stable Additional Instructions: You likely have an abdominal hernia causing your symptoms. As we discussed, you can follow up with the [facility] or Dr Villar and manage this as an outpatient. Your lab work is unremarkable. This chest x-ray is unremarkable. The CT scan of your chest is also unremarkable. Please return to the emergency department as needed. Referrals: GOMEZ PUGH MD (PCP) ATTESTATION BY PHYSICIAN I PERFORMED THE SUBSTANTIVE PORTION OF THE VISIT. I HAVE REVIEWED AND PERSONALLY MADE AND APPROVED THE MANAGEMENT PLAN THAT IS DOCUMENTED IN THE NOTE BY MYSELF FOR THE A PP. I ACKNOWLEDGED FOR RESPONSIBILITY FOR THE PATIENT'S MANAGEMENT PLAN. SERGIO HANSEN MD Oct 04, 2024 16:47 VÍCTOR BANERJEE DO Oct 04, 2024 23:41
[2024-10-04 17:04] LABS: CREATININE 1.3 mg/dL (0.5-1.3); POTASSIUM 3.2 mmol/L (3.5-5.1)
[2024-10-04 17:05] LABS: B-TYPE NATRIURETIC PEPTIDE 19 pg/mL (0-100)
--- NOTE | 2024-10-04 20:10 | HMCIMG ---
Exam Type: CHEST 1VW Clinical Information: CHEST PAIN Comparison: None Findings: The lungs are clear of infiltrates. The heart is normal in size. The bony and soft tissue structures of the chest are unremarkable. Impression: Clear lungs.
--- NOTE | 2024-10-04 20:38 | NUR ---
PATIENT UPSET ABOUT WAIT TIME, PATIENT THREATENEDING TO LEAVE. PATIENT OFFERED BLANKET. PATIENT INFORMED ER PHYSICIAN WOULD LIKE TO ORDER A CT SCAN AND POSSIBLY ADMIT HIM. PATIENT GAVE ER STAFF 10 MIN TO FIND HIM A BED OR HE IS LEAVING. ER PHYSICIAN MADE AWARE. PAT9 Addendum: 10/04/24 at 2041 by [email or web address] PATIENT UPSET ABOUT WAIT TIME, PATIENT THREATENEDING TO LEAVE. PATIENT OFFERED BLANKET. PATIENT INFORMED ER PHYSICIAN WOULD LIKE TO ORDER A CT SCAN AND POSSIBLY ADMIT HIM. PATIENT GAVE ER STAFF 10 MIN TO FIND HIM A BED OR HE IS LEAVING. ER PHYSICIAN MADE AWARE. PATIENT GIVEN UPDATE ON THE WAIT TIME. PATIENT AGREED TO STAY.
--- NOTE | 2024-10-04 21:06 | NUR ---
ASSUMED PT CARE AT THIS TIME
[2024-10-04] MEDS ORDERED: IOHEXOL-350 75 ML VIAL IV ONE (21:25)
--- NOTE | 2024-10-04 21:44 | HMCIMG ---
CT angiogram chest CLINICAL INDICATION: SOB COMPARISON: None. CT Dose Index (CTDI): 113.50 mGy Dose Length Product (DLP): 1408.10 total mGy PROTOCOL: Contrast: 100 cc of Isovue-370, injected IV, no complications Examination is done at 2.5 millimeter volumetric acquisition after contrast administration. Photography is done at 5 millimeter thick intervals for the thorax. FINDINGS: There is no evidence of pulmonary embolism. The airway is intact. The trachea and major bronchi are unremarkable. No pulmonary infiltrates or mass lesions are seen. No pleural effusions are identified. The exam of the melody and mediastinum is unremarkable. No evidence of hilar enlargement is seen. The aorta shows no aneurysmal dilatation or significant atheromatous calcification. There is no thoracic aortic dissection. No significant brachiocephalic vascular abnormalities are seen. Status post median sternotomy with aortic valvular replacement. There is no pericardial effusion. The rib cage appears unremarkable. The soft tissues of the chest wall are unremarkable. The dorsal spine shows no significant abnormalities. Limited evaluation of the upper abdomen demonstrates no gross abnormalities. IMPRESSION: No evidence of pulmonary embolism. This study was performed using dose reduction techniques to include automated exposure control and/or adjustment of the mA and/or kV according to patient size.
[2024-10-05 00:05] VITALS: BP 139/82; PULSE 76; RESP 20; TEMP 98; O2SAT 97
--- NOTE | 2024-10-05 06:50 | EKG ---
[facility] Test Date: 2024-10-04 Test Time: 16:21:34 Pat Name: JESÚS GR Department: ED Room: Gender: M Audograph Operator: [id number] : 1950 Requested By: DEMIAN GONSALVES Order Number: [id number] Reading MD: Nguyễn Blount Measurements Intervals [place] Rate: 92 P: 36 NJ: 170 QRS: -32 QRSD: 80 T: 81 QT: 387 QTc: 478 Interpretive Statements Sinus rhythm Left axis deviation Compared to ECG 06/07/2024 15:20:41 Left-axis deviation now present Electronically Signed On 10-05-2024 17:23:52 DOUGHNUT ICER by Nguyễn Blount Please click the below link to view image of tracing.
== END 2024-10-05 00:08 | disposition home or self-care (01) ==
LOC: EDH 16:17
DX: K46.9 Unspecified abdominal hernia without obstruction or gangrene (principal); R07.89 Other chest pain; R06.00 Dyspnea, unspecified; E11.9 Type 2 diabetes mellitus without complications; Z79.02 Long term (current) use of antithrombotics/antiplatelets; Z79.52 Long term (current) use of systemic steroids; Z79.82 Long term (current) use of aspirin; Z79.899 Other long term (current) drug therapy; Z95.1 Presence of aortocoronary bypass graft; Z95.2 Presence of prosthetic heart valve
CPT/HCPCS: 99285; 71260; 71045; 82550; 83735; 84484; 80048; 83880; 85025; 36415; 93005; Q9967